=== PATIENT | male | born 1980 | race Hispanic/Latino ===

== ENCOUNTER 2020-04-05 07:06 | Outpatient (CLI) | payer OTHER ==
--- NOTE | 2020-04-05 07:40 | ULT ---
Sonogram abdomen complete HISTORY: Abnormal liver function tests. Produce. FINDINGS: Gallbladder well distended without stone evident. Common duct is 0.6 cm. The liver is diffusely echogenic without focal mass or intrahepatic biliary dilatation. No free fluid. The spleen, kidneys, and visualized portions of abdominal aorta, IVC, and pancreas are within normal limits. IMPRESSION : Hepato-steatosis. No acute abnormalities are demonstrated.
== END 2020-04-05 07:07 | disposition home or self-care (01) ==
LOC: BICULT 07:06
PROVIDERS: ATTEND Family Medicine
DX: R79.89 Other specified abnormal findings of blood chemistry (principal); L29.9 Pruritus, unspecified; K76.0 Fatty (change of) liver, not elsewhere classified
CPT/HCPCS: 93975